=== PATIENT | female | born 1940 | race Caucasian/White ===

== ENCOUNTER 2023-02-14 12:07 | Emergency (ER) | payer MEDICARE ==
[~2023-02-14] VITALS: Ht 157.5 cm; Wt 78.0 kg
[2023-02-14 12:21] VITALS: BP_SYST 138; PULSE 64; RESP 18; TEMP 97.4
[2023-02-14 13:08] LABS: BASOPHILS # (AUTO) 0.1 K/uL (0.0-0.2); BASOPHILS % (AUTO) 0.7 % (0.0-2.0); EOSINOPHILS # (AUTO) 0.4 K/uL (0.0-0.4); EOSINOPHILS % (AUTO) 5.9 % (0.0-4.0); HEMOGLOBIN 12.5 g/dL (12.0-16.0); LYMPHOCYTES # (AUTO) 1.9 K/uL (1.0-5.5); LYMPHOCYTES % (AUTO) 27.4 % (20.5-51.5); MEAN CORPUSCULAR HEMOGLOBIN 29 pg (27-31); MEAN CORPUSCULAR HGB CONC 32 % (32-36); MEAN CORPUSCULAR VOLUME 91 fL (79.0-98.0); MONOCYTES # (AUTO) 0.7 K/uL (0.0-1.0); MONOCYTES % (AUTO) 9.5 % (1.7-9.3); NEUTROPHILS % (AUTO) 56.5 % (40.0-70.0); PLATELET COUNT (AUTO) 225 K/uL (130-430); RED BLOOD CELL COUNT(AUTO) 4.29 MIL/uL (4.2-6.2); RED CELL DISTRIBUTION WIDTH 15.1 % (9.0-15.0); WHITE BLOOD COUNT (AUTO) 7.1 K/uL (4.8-10.8)
[2023-02-14 13:21] LABS: ANION GAP 8 (5-15); CALCIUM 9.3 mg/dL (8.4-11.0); CARBON DIOXIDE 29 mmol/L (23-29); CHLORIDE 94 mmol/L (98-107); CREATININE 1.45 mg/dL (0.55-1.30); GLUCOSE 115 mg/dL (74-106); POTASSIUM 3.9 mmol/L (3.5-5.1); SODIUM SERUM 131 mmol/L (136-145); UREA NITROGEN, BLOOD 27 mg/dL (8-21)
[2023-02-14 13:28] LABS: ALANINE AMINOTRANSFERASE 76 U/L (12-78); ALBUMIN 3.1 g/dL (3.4-4.8); ASPARTATE AMINOTRANSFERASE 39 U/L (10-37); BILIRUBIN,DIRECT 0.1 mg/dL (0.0-0.3); TOTAL BILIRUBIN 0.3 mg/dL (0.0-1.0); TOTAL PROTEIN, SERUM 6.9 g/dL (6.4-8.3)
[2023-02-14] MEDS ORDERED: NS 500 ML IV ONE (14:45)
[2023-02-14] MEDS ORDERED: EMPA25TA PO (15:21)
[2023-02-14] MEDS ORDERED: HYDR200T38 PO (15:21)
[2023-02-14] MEDS ORDERED: BRIM10DR16 EACH EYE (15:21)
[2023-02-14] MEDS ORDERED: DULO20CA19 PO (15:21)
[2023-02-14] MEDS ORDERED: ACET-2766 PO (15:21)
[2023-02-14] MEDS ORDERED: COLC0.6T51 PO (15:21)
[2023-02-14] MEDS ORDERED: DESM0.1T24 PO (15:21)
[2023-02-14] MEDS ORDERED: INSU100V7 SQ (15:21)
[2023-02-14] MEDS ORDERED: ATOR40TA68 PO (15:21)
[2023-02-14] MEDS ORDERED: ASPI-524 PO (15:21)
[2023-02-14] MEDS ORDERED: SULF500T8 PO (15:22)
[2023-02-14] MEDS ORDERED: ONDA4TAB11 SL (15:22)
[2023-02-14] MEDS ORDERED: OXYIR5 PO ×2 (15:22)
[2023-02-14] MEDS ORDERED: MIRT7.5T11 PO (15:22)
[2023-02-14] MEDS ORDERED: LIDO1ADH71 TD (15:22)
[2023-02-14] MEDS ORDERED: iohexoL 350 mgI/mL, 100 ML INFUS..BTL IV ONE (15:28)
[2023-02-14] MEDS ORDERED: ENOXAPARIN SODIUM 40 MG/0.4 ML SYRINGE SUBCUT ONE (15:45)
[2023-02-14 16:49] LABS: INR 1.2 (0.8-1.2); PROTHROMBIN TIME 11.9 SECS (9.5-12.5)
[2023-02-14] MEDS ORDERED: NITROGLYCERIN 1 INCH (GM) OINT. TP ONE (17:15)
[2023-02-14] MEDS ORDERED: ASPIRIN 81 MG TAB.CHEW PO ONE (17:30)
[2023-02-14 19:26] VITALS: BP_SYST 151; PULSE 80; RESP 16; TEMP 97.4; O2SAT 99
== END 2023-02-14 19:31 | disposition short-term general hospital (02) ==
LOC: SED 12:07
DX: R07.89 Other chest pain (principal); I21.4 Non-ST elevation (NSTEMI) myocardial infarction; E11.9 Type 2 diabetes mellitus without complications; I10 Essential (primary) hypertension; Z79.4 Long term (current) use of insulin; Z88.1 Allergy status to other antibiotic agents; Z79.899 Other long term (current) drug therapy
CPT/HCPCS: 99285; 96360; 71275; 71045; 80076; 80048; 83880; 85025; 85379; 85610; 85730; 84484; 36415; 93005; 96372; 76376; Q9967; J1650; J7030